=== PATIENT | female | born 1965 | race Caucasian/White ===

== ENCOUNTER 2017-02-08 17:13 | Emergency (ER) | payer OTHER ==
[2017-02-08 17:39] VITALS: BP 149/73
[2017-02-08] MEDS ORDERED: Ketorolac INJ* 30 MG/ML 1 ML VIAL IM ONE (17:49)
[2017-02-08] MEDS ORDERED: Ondansetron ODT TAB* 4 MG PO ONE (17:50)
--- NOTE | 2017-02-08 18:10 | UC ---
Abdominal Pain Female HPI - HPI Summary HPI Summary: 51 yo female with the onset of epigastric pain radiating to btw scapula since 3 AM nausea diaphoresis no vomiting has had similar episodes for the past 8-10 mos none of the episodes have lasted this long or hurt this much pain was worse earlier - History of Current Complaint Chief Complaint: UCAbdominalPain Stated Complaint: MID BACK PAIN Time Seen by Provider: 02/08/17 17:27 Hx Obtained From: Patient Hx Last Menstrual Period: 01/18/17 Onset/Duration: Sudden Onset Severity Initially: Severe Severity Currently: Moderate Pain Intensity: 6 Pain Scale Used: 0-10 Numeric Location: Epigastric Radiates to: Back Character: Aching, Cramping, Sharp Alleviating Factor(s): Nothing Associated Signs and Symptoms: Positive: Diaphoresis, Back Pain, Nausea Allergies/Adverse Reactions: Allergies Allergy/AdvReac Type Severity Reaction Status Date / Time Penicillins [PCN] Allergy Unknown Hives Verified 02/08/17 17:28 Sulfa Antibiotics Allergy Hives Verified 02/08/17 17:28 Home Medications: Home Medications Calcium Carbonate (Antacid) [Tums] 500 mg PO PRN 02/08/17 [History] Simethicone [Gas-X] 80 mg PO PRN 02/08/17 [History] PMH/Surg Hx/FS Hx/Imm Hx Previously Healthy: Yes - Surgical History Surgical History: Yes Surgery Procedure, Year, and Place: BREAST REDUCTION 1997. TONSILLECTOMY A CHILD. RT BREAST BIOPSY W/ BIOPSY MARKER - Family History Known Family History: Positive: Cardiac Disease - Social History Alcohol Use: Occasionally Alcohol Amount: 1-2 per week Substance Use Type: None Smoking Status (MU): Never Smoked Tobacco Review of Systems Constitutional: Negative Skin: Negative Eyes: Negative ENT: Negative Respiratory: Negative Cardiovascular: Negative Gastrointestinal: Abdominal Pain, Nausea Genitourinary: Negative Motor: Negative Neurovascular: Negative Musculoskeletal: Negative Neurological: Negative Psychological: Negative Is Patient Immunocompromised?: No All Other Systems Reviewed And Are Negative: Yes Physical Exam Triage Information Reviewed: Yes Appearance: Well-Appearing, Well-Nourished, Pain Distress Vital Signs: Initial Vital Signs Temp 97.9 F 02/08/17 17:32 Pulse 75 02/08/17 17:32 Resp 20 02/08/17 17:32 BP 149/73 02/08/17 17:32 Pulse Ox 98 10/18/17 17:32 Eye Exam: Normal ENT: Positive: Hearing grossly normal. Negative: Nasal congestion, Nasal drainage, Trismus, Muffled/hoarse voice Neck: Positive: Supple, Nontender, No Lymphadenopathy Respiratory: Positive: Lungs clear, Normal breath sounds, No respiratory distress, No accessory muscle use Cardiovascular: Positive: RRR, No Murmur. Negative: Tachycardia, Bradycardia Abdomen Description: Positive: Soft. Negative: Nontender - tender RUQ and epigastrium Musculoskeletal: Positive: ROM Intact, No Edema Neurological: Positive: Alert Psychological Exam: Normal Skin Exam: Normal Diagnostics - EKG Cardiac Rate: NL Cardiac Rhythm: Sinus: Normal Ectopy: None ST Segment: Normal Re-Evaluation - Re-Evaluation First Eval Re-Evaluation Time: 18:17 Change: Improved - pain essentially gone Abd Pain Female Course/Dx - Course Course Of Treatment: d/w [facility]. Gates [facility] (accepts pt). she declines EMS transfer - Differential Dx/Diagnosis Provider Diagnoses: abdominal pain of uncertain cause. suspect gall bladder disease Discharge - Discharge Plan Condition: Stable Disposition: [facility] Patient Education Materials: Gallstones (ED) Referrals: Kay Lott NP [Primary Care Provider] - Additional Instructions: I suspect your symptoms are due to a gallbladder problems I suggest you go to the ER for further evaluation
== END 2017-02-08 18:27 | disposition short-term general hospital (02) ==
LOC: UCCORT 17:13
DX: R10.9 Unspecified abdominal pain (principal); Z88.0 Allergy status to penicillin; Z88.2 Allergy status to sulfonamides
CPT/HCPCS: 93005; 96372; 99212; A9270-GY; G0463; J1885